=== PATIENT | male | born 1950 | race Two or more races ===

== ENCOUNTER 2020-08-13 10:00 | Outpatient (CLI) | payer OTHER ==
[2020-08-14] MEDS ORDERED: ULTRACET PO (17:20)
== END 2020-08-13 10:07 | disposition home or self-care (01) ==
LOC: RAD 10:00
PROVIDERS: ATTEND Surgery
DX: R59.0 Localized enlarged lymph nodes (principal); C20 Malignant neoplasm of rectum; R19.4 Change in bowel habit

== ENCOUNTER 2020-08-14 07:43 | Day surgery (SDC) | payer OTHER ==
[2020-08-14] MEDS ORDERED: ULTRACET PO (17:20)
== END 2020-08-14 18:30 | disposition home or self-care (01) ==
LOC: CIR.AMB 07:43
PROVIDERS: ATTEND Surgery
DX: C20 Malignant neoplasm of rectum (principal); Z20.828 Contact with and (suspected) exposure to other viral communicable diseases
CPT/HCPCS: 36561; C1751

== ENCOUNTER 2020-12-02 08:14 | Day surgery (SDC) | payer OTHER ==
[~2020-12-02 08:14] MED LIST: ULTRACET PO
== END 2020-12-02 12:15 | disposition home or self-care (01) ==
LOC: AMB-ENDOS 08:14
PROVIDERS: ATTEND Surgery
DX: K62.89 Other specified diseases of anus and rectum (principal); Z20.828 Contact with and (suspected) exposure to other viral communicable diseases

== ENCOUNTER 2021-01-19 11:45 | Inpatient (IN) | payer OTHER ==
[~2021-01-19] VITALS: Ht 172.7 cm; Wt 76.2 kg
[2021-01-26] MEDS ORDERED: TAMSULOSIN HCL0.4 MG (11:57)
[2021-01-31] MEDS ORDERED: TAMS0.4C PO (11:11)
[2021-01-31] MEDS ORDERED: OXYC1TAB9 PO (11:11)
== END 2021-01-31 17:50 | disposition home or self-care (01) | DRG 330 ==
LOC: SURG 01-26 08:40 → O/R 01-26 08:40 → SURH 01-26 10:45 → SURG 01-26 16:30
PROVIDERS: ADMIT Surgery; ATTEND Surgery
PROC: 0DTP4ZZ Resection of Rectum, Percutaneous Endoscopic Approach (ICD-10-PCS; 2021-01-26)
PROC: 0DTQ4ZZ Resection of Anus, Percutaneous Endoscopic Approach (ICD-10-PCS; 2021-01-26)
PROC: 07BC4ZZ Excision of Pelvis Lymphatic, Percutaneous Endoscopic Approach (ICD-10-PCS; 2021-01-26)
PROC: 0D1M4Z4 Bypass Descending Colon to Cutaneous, Percutaneous Endoscopic Approach (ICD-10-PCS; 2021-01-26)
PROC: 0DTN4ZZ Resection of Sigmoid Colon, Percutaneous Endoscopic Approach (ICD-10-PCS; principal; 2021-01-26 10:45)
DX: C20 Malignant neoplasm of rectum (principal); K61.0 Anal abscess; R59.0 Localized enlarged lymph nodes; R33.9 Retention of urine, unspecified; F43.21 Adjustment disorder with depressed mood; F43.22 Adjustment disorder with anxiety